=== PATIENT | male | born 1970 | race Caucasian/White ===

== ENCOUNTER 2019-08-15 08:02 | Emergency (ER) | payer BC ==
[2019-08-15 08:32] VITALS: TEMP 98.2
[2019-08-15] MEDS ORDERED: SODIUM CHLORIDE 0.9% 1,000 ML IV STA (09:19)
--- NOTE | 2019-08-15 09:39 | ED ---
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 He has some difficulty walking with that no focal weakness to his arms or legs. He states he did take one of his 2 blood pressure medications and metformin as well as to regular aspirins. He states the dizziness to get worse with head turning and movement. He also states that he has had edema to his lower extremities was really pronounced 2 days ago but has gotten better. He states he also had some history of kidney issues at. Right now the dizziness has improved no blurry vision no television no trouble with hearing does say he's had a history of concussions and when he was a child he had injuries to his years by Q-tips in both ears. No prior history of vertigo. No palpitations reported at this time no other modifying factors georgi ent does state he had a CAT scan done within the last 1 or 2 years with contrast apparently this was normal. MD Complaint: dizziness - Related Data Home Medications Medication Instructions Recorded Confirmed Atorvastatin [Lipitor] 20 mg PO DAILY 08/15/19 08/15/19 Losartan/Hydrochlorothiazide 1 tab PO DAILY 08/15/19 08/15/19 [Hyzaar 100-12.5 Tablet] Metoprolol Succinate [Toprol Xl] 50 mg PO DAILY 08/15/19 08/15/19 metFORMIN HCL 1,000 mg PO BID 08/15/19 08/15/19 sitaGLIPtin [Januvia] 100 mg PO DAILY 08/15/19 08/15/19 Previous Rx's Medication Instructions Recorded Meclizine [Antivert] 25 mg PO TID #15 tab 08/15/19 Allergies Allergy/AdvReac Type Severity Reaction Status Date / Time glipizide AdvReac LOW BLOOD Verified 08/15/19 09:10 SUGAR Review of Systems ROS Statement: Those systems with pertinent positive or pertinent negative responses have been documented in the HPI. ROS Other: All systems not noted in ROS Statement are negative. Past Medical History Past Medical History: Hypertension Additional Past Medical History / Comment(s): hernia History of Any Multi-Drug Resistant Organisms: None Reported Past Surgical History: Hernia Repair Additional Past Surgical History / Comment(s): knee surgery Past Psychological History: No Psychological Hx Reported Smoking Status: Never smoker Past Alcohol Use History: None Reported Past Drug Use History: None Reported General Exam - General Exam Comments Initial Comments: This is a well-developed well-nourished awake alert oriented 3 male Limitations: no limitations General appearance: alert, in no apparent distress Head exam: Present: atraumatic, normocephalic, normal inspection Eye exam: Present: normal appearance, PERRL, EOMI. Absent: scleral icterus, conjunctival injection, periorbital swelling ENT exam: Present: normal exam, mucous membranes moist Neck exam: Present: normal inspection, full ROM, other (No stridor JVD or bruits). Absent: tenderness, meningismus, lymphadenopathy Respiratory exam: Present: normal lung sounds bilaterally. Absent: respiratory distress, wheezes, rales, rhonchi, stridor Cardiovascular Exam: Present: regular rate, normal rhythm, normal heart sounds. Absent: systolic murmur, diastolic murmur, rubs, gallop, clicks GI/Abdominal exam: Present: soft, normal bowel sounds. Absent: distended, tenderness, guarding, rebound, rigid Extremities exam: Present: normal inspection, full ROM, normal capillary refill. Absent: tenderness, pedal edema, joint swelling, calf tenderness Back exam: Present: normal inspection Neurological exam: Present: alert, oriented X3, CN II-XII intact Psychiatric exam: Present: normal affect, normal mood Skin exam: Present: warm, dry, intact, normal color. Absent: rash Course Vital Signs 08/15/19 08/15/19 08/15/19 08:28 10:09 10:30 Temperature 98.2 F Pulse Rate 76 68 75 Respiratory 18 16 16 Rate Blood Pressure 146/89 139/81 O2 Sat by Pulse 96 95 94 L Oximetry 08/15/19 11:00 Temperature Pulse Rate 71 Respiratory 16 Rate Blood Pressure 131/62 O2 Sat by Pulse 94 L Oximetry - Reevaluation(s) Reevaluation #1: 08/15/19 10:02 CT report from the [facility] performed on 05/24/2018 was essentially unremarkable please see the attached report EKG Findings - EKG Results: EKG: interpreted by SALVADOR, sinus rhythm (Sinus rhythm rate is 70 PA interval 166 QRS duration 122 QT/XHY507/440 nonspecific interventricular conduction delay nonspecific T-wave configuration inferiorly) Medical Decision Making - Medical Decision Making Reevaluation patient finds he is asymptomatic. I did have one discussed with patient regarding findings the blood pressure is normalized he will be discharged to follow-up with his doctor as planned. He was given copies of his EKG. The presentation is consistent with vertigo will be given a prescription for Antivert to be used when necessary - Lab Data Result diagrams: 08/15/19 10:19 08/15/19 10: Lab Results 08/15/19 08/15/19 08/15/19 Range/Units 10:19 10: 10:19 WBC 7.5 (3.8-10.6) k/uL RBC 5.24 (4.30-5.90) m/uL Hgb 16.0 (13.0-17.5) gm/dL Hct 46.9 (39.0-53.0) % MCV 89.4 (80.0-100.0) fL MCH 30.4 (25.0-35.0) pg MCHC 34.1 (31.0-37.0) g/dL RDW 13.0 (11.5-15.5) % Plt Count 235 (150-450) k/uL Neutrophils % 57 % Lymphocytes % 30 % Monocytes % 6 % Eosinophils % 4 % Basophils % 2 % Neutrophils # 4.3 (1.3-7.7) k/uL Lymphocytes # 2.2 (1.0-4.8) k/uL Monocytes # 0.4 (0-1.0) k/uL Eosinophils # 0.3 (0-0.7) k/uL Basophils # 0.2 (0-0.2) k/uL D-Dimer 0.26 (<0.60) mg/L FEU Sodium 139 (137-145) mmol/L Potassium 4.8 (3.5-5.1) mmol/L Chloride 106 (98-107) mmol/L Carbon Dioxide 22 (22-30) mmol/L Anion Gap 11 mmol/L BUN 18 (9-20) mg/dL Creatinine 0.98 (0.66-1.25) mg/dL Est GFR (CKD-EPI)AfAm >90 (>60 ml/min/1.73 sqM) Est GFR (CKD-EPI)NonAf >90 (>60 ml/min/1.73 sqM) Glucose 150 H (74-99) mg/dL Calcium 9.9 (8.4-10.2) mg/dL Magnesium 1.9 (1.6-2.3) mg/dL Total Bilirubin 0.7 (0.2-1.3) mg/dL AST 34 (17-59) U/L ALT 30 (21-72) U/L Alkaline Phosphatase 48 (38-126) U/L Creatine Kinase 159 (55-170) U/L Troponin I (0.000-0.034) ng/mL Total Protein 7.3 (6.3-8.2) g/dL Albumin 4.3 (3.5-5.0) g/dL 08/15/19 Range/Units 10:19 WBC (3.8-10.6) k/uL RBC (4.30-5.90) m/uL Hgb (13.0-17.5) gm/dL Hct (39.0-53.0) % MCV (80.0-100.0) fL MCH (25.0-35.0) pg MCHC (31.0-37.0) g/dL RDW (11.5-15.5) % Plt Count (150-450) k/uL Neutrophils % % Lymphocytes % % Monocytes % % Eosinophils % % Basophils % % Neutrophils # (1.3-7.7) k/uL Lymphocytes # (1.0-4.8) k/uL Monocytes # (0-1.0) k/uL Eosinophils # (0-0.7) k/uL Basophils # (0-0.2) k/uL D-Dimer (<0.60) mg/L FEU Sodium (137-145) mmol/L Potassium (3.5-5.1) mmol/L Chloride (98-107) mmol/L Carbon Dioxide (22-30) mmol/L Anion Gap mmol/L BUN (9-20) mg/dL Creatinine (0.66-1.25) mg/dL Est GFR (CKD-EPI)AfAm (>60 ml/min/1.73 sqM) Est GFR (CKD-EPI)NonAf (>60 ml/min/1.73 sqM) Glucose (74-99) mg/dL Calcium (8.4-10.2) mg/dL Magnesium (1.6-2.3) mg/dL Total Bilirubin (0.2-1.3) mg/dL AST (17-59) U/L ALT (21-72) U/L Alkaline Phosphatase (38-126) U/L Creatine Kinase (55-170) U/L Troponin I <0.012 (0.000-0.034) ng/mL Total Protein (6.3-8.2) g/dL Albumin (3.5-5.0) g/dL - Radiology Data Radiology results: report reviewed, image reviewed Disposition Clinical Impression: Benign paroxysmal positional vertigo Disposition: HOME SELF-CARE Condition: Good Instructions (If sedation given, give patient instructions): Dizziness (ED), Benign Paroxysmal Positional Vertigo (ED) Additional Instructions: Antivert prescription sent to your [facility] [place] pharmacy Prescriptions: Meclizine [Antivert] 25 mg PO TID #15 tab Is patient prescribed a controlled substance at d/c from ED?: No Referrals: Rigoberto Lovelace MD [Primary Care Provider] - 1-2 days
[2019-08-15 10:25] LABS: Basophils # (A) 0.2 k/uL (0-0.2); Basophils % (A) 2 %; Eosinophils # (A) 0.3 k/uL (0-0.7); Eosinophils % (A) 4 %; HCT 46.9 % (39.0-53.0); Lymphocytes # (A) 2.2 k/uL (1.0-4.8); Lymphocytes % (A) 30 %; MCH 30.4 pg (25.0-35.0); MCHC 34.1 g/dL (31.0-37.0); MCV 89.4 fL (80.0-100.0); Mean Platelet Volume 7.5; Monocytes # (A) 0.4 k/uL (0-1.0); Monocytes % (A) 6 %; Neutrophils # (A) 4.3 k/uL (1.3-7.7); Neutrophils % (A) 57 %; Platelet Count 235 k/uL (150-450); RBC 5.24 m/uL (4.30-5.90); WBC 7.5 k/uL (3.8-10.6)
[2019-08-15 10:38] LABS: ALT 30 U/L (21-72); AST 34 U/L (17-59); African American GFR (CKD) >90 (>60 ml/min/1.73 sqM); Albumin 4.3 g/dL (3.5-5.0); Alkaline Phosphatase 48 U/L (38-126); Anion Gap 11 mmol/L; Blood Urea Nitrogen 18 mg/dL (9-20); Calcium 9.9 mg/dL (8.4-10.2); Carbon Dioxide 22 mmol/L (22-30); Chloride 106 mmol/L (98-107); Creatine Kinase 159 U/L (55-170); Glucose 150 mg/dL (74-99); Magnesium 1.9 mg/dL (1.6-2.3); Sodium 139 mmol/L (137-145); Total Bilirubin 0.7 mg/dL (0.2-1.3); Total Protein 7.3 g/dL (6.3-8.2)
[2019-08-15 10:47] LABS: Potassium 4.8 mmol/L (3.5-5.1)
[2019-08-15 12:30] VITALS: BP 155/86; PULSE 72; RESP 18
== END 2019-08-15 12:31 | disposition home or self-care (01) ==
LOC: EC 08:02
DX: H81.10 Benign paroxysmal vertigo, unspecified ear (principal); R26.2 Difficulty in walking, not elsewhere classified; I10 Essential (primary) hypertension; E11.9 Type 2 diabetes mellitus without complications; Z88.8 Allergy status to other drugs, medicaments and biological substances; Z79.84 Long term (current) use of oral hypoglycemic drugs; Z79.899 Other long term (current) drug therapy; Z87.828 Personal history of other (healed) physical injury and trauma; Z53.8 Procedure and treatment not carried out for other reasons
CPT/HCPCS: 36415; 80053; 82550; 83735; 84484; 85025; 85379; 99284

== ENCOUNTER → 2019-08-22 | Outpatient (CLI) | payer BC ==
--- NOTE | 2019-08-22 13:37 | NM ---
EXAMINATION TYPE: NM stress cardiolite complete DATE OF EXAM: 08/22/2019 COMPARISON: NONE HISTORY: Precordial chest pain and abnormal EKG TECHNIQUE: After the intravenous administration of 10.8 mCi Tc 99m Sestamibi - Rest images obtained 60 minutes post injection. The patient exercised using a HEMAL protocol and 1 minute prior to peak exercise was injected with 25.3 mCi Tc 99m Sestamibi - Stress images obtained 15 minutes post injecti on. FINDINGS: Targeted heart rate was achieved during performance of the study. Review of stress and rest SPECT kyle ges demonstrates no distinct perfusion abnormality. Limited rest portion of the study given patient motion. Gated analysis shows normal wall motion with an estimated left ventricular ejection fraction of 41 %. IMPRESSION: No scintigraphic evidence for reversible ischemia
--- NOTE | 2019-08-23 16:39 | EST ---
EXERCISE STRESS AGE: 48 SEX: Male HT: 5'10" WT: 315 lbs PROTOCOL: Reece STAGE: 3 DURATION OF EXERCISE: 7:33 HEART RATE REST: 86 BLOOD PRESSURE REST: 142/90 MAXIMUM HEART RATE ACHIEVED: 153 MAXIMUM BLOOD PRESSURE: 168/107 85% MPHR: 147 100% MPHR: 173 METS: 8.7 INDICATIONS: Abnormal EKG CLINICAL INFORMATION: The patient was exercised for a total period of 7 minutes and 30 seconds. Peak heart rate of 153 was achieved. Maximum blood pressure of 140/100 mmHg was noted. Resting EKG shows normal sinus rhythm with normal NJ interval and QRS duration and QRS morphology suggestive of incomplete right bundle branch block pattern was noted. Patient does have baseline ST-T abnormalities in lead III and aVF. During exercise, ST- depression and T-wave inversions were noted in the inferolateral leads. Patient did not complain of any chest pain during the test. FINAL IMPRESSION: 1. This exercise EKG is inconclusive to diagnose ischemia because of the resting ST- segment abnormalities and incomplete right bundle branch block. During exercise, ST-T changes were noted in the inferolateral leads, but they are difficult to conclude for ischemia because of the resting abnormalities. Further evaluation with imaging study is suggested. 2. Patient did not complain of any chest pain during the test. 3. No dysrhythmias were noted. MMODL / IJN: [id number] /
== END ==
LOC: RADNMMAIN 07:56
PROVIDERS: ATTEND Family Medicine
DX: R94.31 Abnormal electrocardiogram [ECG] [EKG] (principal)
CPT/HCPCS: 93017; 78452; A9500

== ENCOUNTER → 2019-09-25 | Outpatient (CLI) | payer BC, OTHER ==
--- NOTE | 2019-09-26 10:17 | ECHOF ---
Referral Reason:I50.9 heart failure MEASUREMENTS -------- HEIGHT: 177.8 cm WEIGHT: 142.9 kg BP: 174/83 RVIDd: 3.2 cm (< 3.3) IVSd: 1.3 cm (0.6 - 1.1) LVIDd: 3.9 cm (3.9 - 5.3) LVPWd: 1.2 cm (0.6 - 1.1) IVSs: 1.6 cm LVIDs: 2.7 cm LVPWs: 1.7 cm LA Diam: 3.2 cm (2.7 - 3.8) LAESV Index (A-L): 14.54 ml/m Ao Diam: 3.2 cm (2.0 - 3.7) AV Cusp: 2.2 cm (1.5 - 2.6) MV EXCURSION: 16.594 mm (> 18.000) MV EF SLOPE: 48 mm/s (70 - 150) EPSS: 0.3 cm MV E Gasper: 0.61 m/s MV DecT: 211 ms MV A Gasper: 0.72 m/s MV E/A Ratio: 0.85 FINDINGS -------- Sinus rhythm. This was a technically adequate study. The left ventricular size is normal. There is mild concentric left ventricular hypertrophy. Overa ll left ventricular systolic function is normal with, an EF between 60 - 65 %. The diastolic fillin g pattern is normal for the age of the patient 8.44. The right ventricle is normal in size. Normal LA size by volume 22+/-6 ml/m2. The right atrium is normal in size. Interatrial and interventricular septum intact. The aortic valve is trileaflet and appears structurally normal. The mitral valve is normal. The tricuspid valve appears structurally normal. There is no pulmonic regurgitation present. The aortic root size is normal. IVC Not well visulized. There is no pericardial effusion. CONCLUSIONS -------- 1. Sinus rhythm. 2. This was a technically adequate study. 3. The left ventricular size is normal. 4. There is mild concentric left ventricular hypertrophy. 5. Overall left ventricular systolic function is normal with, an EF between 60 - 65 %. 6. The diastolic filling pattern is normal for the age of the patient 8.44 7. The right ventricle is normal in size. 8. Normal LA size by volume 22+/-6 ml/m2. 9. The right atrium is normal in size. 10. Interatrial and interventricular septum intact. 11. The aortic valve is trileaflet and appears structurally normal. 12. The mitral valve is normal. 13. The tricuspid valve appears structurally normal. 14. There is no pulmonic regurgitation present. 15. The aortic root size is normal. 16. IVC Not well visulized. 17. There is no pericardial effusion. ROCK CRUSHING MACHINE OPERATOR: Angi Milligan RDCS
== END | disposition home or self-care (01) ==
LOC: RADECHMAIN 10:53
PROVIDERS: ATTEND Family Medicine
DX: I50.9 Heart failure, unspecified (principal)
CPT/HCPCS: 93306

== ENCOUNTER 2024-03-07 13:59 | Emergency (ER) | payer BC ==
--- NOTE | 2024-03-07 14:22 | ED ---
ENT HPI - General Stated complaint: Pain in both ears Time Seen by Provider: 03/07/24 14:21 Source: patient, RN notes reviewed Mode of arrival: ambulatory Limitations: no limitations - History of Present Illness Initial comments: 53-year-old male presenting to the ER with a chief complaint of right ear bleeding. Patient sent from urgent care and was told he had perforated bilat eral tympanic membranes. He states he woke up this morning to his right ear bleeding. Patient does describe a muffled sensation to sound. Denies any blood thinners or other complaints. Denies any trauma, fevers, chills, chest pain, cough, congestion, shortness of breath, abdominal pain, or other complaints. - Related Data Home Medications Medication Instructions Recorded Confirmed Atorvastatin [Lipitor] 20 mg PO DAILY 08/15/19 08/15/19 Losartan/Hydrochlorothiazide 1 tab PO DAILY 08/15/19 08/15/19 [Hyzaar 100-12.5 Tablet] Metoprolol Succinate [Toprol Xl] 50 mg PO DAILY 08/15/19 08/15/19 metFORMIN HCL [Glucophage] 1,000 mg PO BID 08/15/19 08/15/19 sitaGLIPtin [Januvia] 100 mg PO DAILY 08/15/19 08/15/19 Previous Rx's Medication Instructions Recorded Meclizine [Antivert] 25 mg PO TID #15 tab 08/15/19 Ofloxacin 0.3% Otic Soln [Floxin 10 drops BOTH EARS BID #10 ml 03/07/24 0.3% Otic Soln] Allergies Allergy/AdvReac Type Severity Reaction Status Date / Time glipizide AdvReac LOW BLOOD Verified 03/07/24 14:51 SUGAR Review of Systems ROS Statement: Those systems with pertinent positive or pertinent negative responses have been documented in the HPI. ROS Other: All systems not noted in ROS Statement are negative. Past Medical History Past Medical History: Hypertension Additional Past Medical History / Comment(s): hernia History of Any Multi-Drug Resistant Organisms: None Reported Past Surgical History: Hernia Repair Additional Past Surgical History / Comment(s): knee surgery Past Psychological History: No Psychological Hx Reported Past Alcohol Use History: None Reported Past Drug Use History: None Reported General Exam - General Exam Comments Initial Comments: Visual Physical Exam General: Well-appearing, nontoxic, no acute distress. Head: Normocephalic, atraumatic Eyes: PERRLA, EOMI ENT: Airway patent Chest: Nonlabored breathing Skin: No visual rash, normal skin tone Neuro: Alert and oriented 3 Musculoskeletal: No gross abnormalities General appearance: alert, in no apparent distress Head exam: Present: atraumatic, normocephalic, normal inspection Eye exam: Present: normal appearance, PERRL, EOMI. Absent: scleral icterus, conjunctival injection, periorbital swelling ENT exam: Present: normal oropharynx, other (Bilateral tympanic membrane perforation. Minimal active bleeding of right membrane) Neck exam: Present: normal inspection. Absent: tenderness, meningismus, lymphadenopathy Respiratory exam: Present: normal lung sounds bilaterally. Absent: respiratory distress, wheezes, rales, rhonchi, stridor Cardiovascular Exam: Present: regular rate, normal rhythm, normal heart sounds. Absent: systolic murmur, diastolic murmur, rubs, gallop, clicks Skin exam: Present: warm, dry, intact, normal color. Absent: rash Course Vital Signs 03/07/24 03/07/24 14:48 16:15 Temperature 97.9 F 98.0 F Pulse Rate 68 78 Respiratory 16 18 Rate Blood Pressure 132/76 130/78 O2 Sat by Pulse 98 99 Oximetry Medical Decision Making - Medical Decision Making I performed the quick note portion of this chart. Electronically signed by Mallorie Lambert PA-C Was pt. sent in by a medical professional or institution (FRANKLYN Barrera, DRIVE WORKER, urgent care, hospital, or assisted...) When possible be specific @ -Patient sent by urgent care for evaluation of tympanic membrane perforation Did you speak to anyone other than the patient for history (EMS, parent, family, police, friend...)? What history was obtained from this source @ -No Did you review nursing and triage notes (agree or disagree)? Why? @ -I reviewed and agree with nursing and triage notes Were old charts reviewed (outside hosp., previous admission, EMS record, old EKG, old radiological studies, urgent care reports/EKG's, assisted records)? Report findings @ -No old charts were reviewed Differential Diagnosis (chest pain, altered mental status, abdominal pain women, abdominal pain men, vaginal bleeding, weakness, fever, dyspnea, syncope, headache, dizziness, GI bleed, back pain, seizure, CVA, palpatations, mental health, musculoskeletal)? @ -Otitis media, otitis externa, panic membrane perforation, cholesteatoma this list is not meant to be all-inclusive. EKG interpreted by me (3pts min.). @ -None X-rays interpreted by me (1pt min.). @ -None done CT interpreted by me (1pt min.). @ -None done U/S interpreted by me (1pt. min.). @ -None done What testing was considered but not performed or refused? (CT, X-rays, U/S, labs)? Why? @ -None What meds were considered but not given or refused? Why? @ -None Did you discuss the management of the patient with other professionals (professionals i.e. , PA, DRIVE WORKER, lab, RT, psych nurse, manager social work, firer retort, teacher, drug abuse resistance education officer, case work aide)? Give summary @ -No Was smoking cessation discussed for >3mins.? @ -No Was critical care preformed (if so, how long)? @ -No Were there social determinants of health that impacted care today? How? (Homelessness, low income, unemployed, alcoholism, drug addiction, transportation, low edu. Level, literacy, decrease access to med. care, senior care, rehab)? @ -No Was there de-escalation of care discussed even if they declined (Discuss DNR or withdrawal of care, Hospice)? DNR status @ -No What co-morbidities impacted this encounter? (DM, HTN, Smoking, COPD, CAD, Cancer, CVA, ARF, Chemo, Hep., AIDS, mental health diagnosis, sleep apnea, morbid obesity)? @ -None Was patient admitted / discharged? Hospital course, mention meds given and route, prescriptions, significant lab abnormalities, going to OR and other pertinent info. @ -Discharged. 53 year old male presenting to the ER with chief complaint of bleeding from right ear. History and physical exam completed. Vitals stable. Patient in no signs of distress and nontoxic-appearing. Bilateral tympanic membranes perforated. Results discussed with patient, all questions answered. Ofloxacin prescribed. Advise close follow-up with ENT, referral given. Return parameters discussed. Patient discharged stable condition with follow-up to ENT/PCP. Patient verbally expressed understanding and agreement with care plan. Case discussed with ED attending, Dr. Mosqueda. Undiagnosed new problem with uncertain prognosis? @ -No Drug Therapy requiring intensive monitoring for toxicity (Heparin, Nitro, Insulin, Cardizem)? @ -No Were any procedures done? @ -No Diagnosis/symptom? @ -Tympanic membrane perforation Acute, or Chronic, or Acute on Chronic? @ -Acute Uncomplicated (without systemic symptoms) or Complicated (systemic symptoms)? @ -Uncomplicated Side effects of treatment? @ -No Exacerbation, Progression, or Severe Exacerbation? @ -No Poses a threat to life or bodily function? How? (Chest pain, [place], NH, pneumonia, PE, COPD, DKA, ARF, appy, cholecystitis, CVA, Diverticulitis, Homicidal, Suicidal, threat to staff... and all critical care pts) @ -No Disposition Clinical Impression: Tympanic membrane perforation Disposition: HOME SELF-CARE Condition: Stable Instructions (If sedation given, give patient instructions): Ruptured Eardrum (ED) Additional Instructions: Use ofloxacin eardrops daily. Follow-up with ENT. Return to the ER for any new or worsening concerns. Prescriptions: Ofloxacin 0.3% Otic Soln [Floxin 0.3% Otic Soln] 10 drops BOTH EARS BID #10 ml Is patient prescribed a controlled substance at d/c from ED?: No Referrals: Louie Lockhart MD [Primary Care Provider] - 1-2 days Turner Gabriel MD [STAFF PHYSICIAN] - 1-2 days Time of Disposition: 16:05
[2024-03-07 16:43] VITALS: BP 130/78; PULSE 78; RESP 18; TEMP 98
== END 2024-03-07 16:15 | disposition home or self-care (01) ==
LOC: EC 13:59
DX: H72.93 Unspecified perforation of tympanic membrane, bilateral (principal); Z88.8 Allergy status to other drugs, medicaments and biological substances
CPT/HCPCS: 99282